=== PATIENT | female | born 1960 | race Caucasian/White ===

== ENCOUNTER 2017-03-23 09:04 | Inpatient (IN) | payer MEDICAID ==
[~2017-03-23] VITALS: Ht 162.6 cm; Wt 87.1 kg
[2017-03-23 10:06] LABS: BASOPHIL % 0.3 % (0-2); PLATELET COUNT 238 x10^3mcL (130-400); RED CELL DISTRIBUTION WIDTH 13.4 % (11.5-14.5)
[2017-03-23 10:17] LABS: CALCIUM 9.7 mg/dL (8.5-10.1); CARBON DIOXIDE 28.8 mmol/L (21-32); CHLORIDE SERUM 105 mmol/L (98-107); CREATININE SERUM 0.7 mg/dL (0.6-1.0); GFR1 > 60 mL/min; GLUCOSE SERUM 103 mg/dL (74-106); POTASSIUM SERUM 3.6 mmol/L (3.5-5.1); SODIUM SERUM 142 mmol/L (136-145)
[2017-03-23 10:21] LABS: ALBUMIN 3.9 g/dL (3.4-5.0); ALKALINE PHOSPHATASE 140 U/L (46-116); ALT/SGPT 42 U/L (14-59); AMYLASE 54 U/L (25-115); AST/SGOT 38 U/L (15-37); BILIRUBIN TOTAL 0.38 mg/dL (0.20-1.00); LIPASE 125 IU/L (73-393)
[2017-03-23 10:30] LABS: TOTAL PROTEIN, SERUM 8.6 g/dL (6.4-8.2)
[2017-03-23 16:11] LABS: CHOLESTEROL/HDL RATIO 3.7; MAGNESIUM 2.6 mg/dL (1.8-2.4); PHOSPHOROUS 2.5 mg/dL (2.5-4.9)
[2017-03-23 16:18] LABS: T3 TOTAL 1.25 ng/mL
[2017-03-23 16:38] LABS: FREE T4 0.95 ng/dL (0.76-1.46); FREE THYROXINE INDEX 2.5 ug/dL (1.4-4.5); T4(THYROXINE) 8.2 ug/dL (4.7-13.3)
[2017-03-23 17:00] VITALS: BP 145/78
[2017-03-23] MEDS ORDERED: GEMFIBROZIL600 MG PO (20:02)
[2017-03-23 21:29] VITALS: BP 130/64
[2017-03-24 04:41] LABS: microscopic required? NO
[2017-03-24 05:02] LABS: UA SPECIFIC GRAVITY 1.015 (1.005-1.035); urine erythrocyte NEGATIVE (NEGATIVE)
[2017-03-24 05:09] LABS: AMPHETAMINE QUAL UR NONE DETECTED (NEG <=1000)
[2017-03-24 05:29] VITALS: BP 97/54
[2017-03-24 06:31] LABS: CALCIUM 8.9 mg/dL (8.5-10.1); CARBON DIOXIDE 28.4 mmol/L (21-32); CHLORIDE SERUM 109 mmol/L (98-107); CREATININE SERUM 0.7 mg/dL (0.6-1.0); GFR1 > 60 mL/min; GLUCOSE SERUM 84 mg/dL (74-106); MAGNESIUM 2.6 mg/dL (1.8-2.4); POTASSIUM SERUM 4.1 mmol/L (3.5-5.1); SODIUM SERUM 142 mmol/L (136-145)
[2017-03-24 06:52] LABS: BASOPHIL % 0.5 % (0-2); PLATELET COUNT 199 x10^3mcL (130-400); RED CELL DISTRIBUTION WIDTH 13.5 % (11.5-14.5)
[2017-03-24 09:37] VITALS: Ht 162.6 cm; Wt 87.1 kg
[2017-03-24 09:39] VITALS: BP 129/79
[2017-03-24 14:35] VITALS: BP 126/41
[2017-03-24 21:33] VITALS: BP 105/50
[2017-03-25 05:55] VITALS: BP 107/60
[2017-03-25 06:14] LABS: CARBON DIOXIDE 28.6 mmol/L (21-32); CHLORIDE SERUM 109 mmol/L (98-107); CREATININE SERUM 0.6 mg/dL (0.6-1.0); GFR1 > 60 mL/min; GLUCOSE SERUM 82 mg/dL (74-106); MAGNESIUM 2.3 mg/dL (1.8-2.4); PHOSPHOROUS 3.2 mg/dL (2.5-4.9); POTASSIUM SERUM 4.2 mmol/L (3.5-5.1); SODIUM SERUM 141 mmol/L (136-145)
[2017-03-25 06:44] LABS: BASOPHIL % 0.3 % (0-2); PLATELET COUNT 180 x10^3mcL (130-400); RED CELL DISTRIBUTION WIDTH 13.6 % (11.5-14.5)
[2017-03-25] MEDS ORDERED: MIRALAX17 GM/Dose PO (10:08)
[2017-03-25 13:54] VITALS: BP 114/69
[2017-03-25] MEDS ORDERED: PREHO PR (15:19)
[2017-03-25] MEDS ORDERED: COL100 PO (15:20)
[2017-03-25] MEDS ORDERED: APAP/HYDROCODON1 T13 PO (15:20)
[2017-03-25 17:07] VITALS: BP 120/73
== END 2017-03-25 18:10 | disposition home or self-care (01) | DRG 254 ==
LOC: ED 09:04 → DU 15:00
PROVIDERS: Emergency Medicine; Family Medicine; ADMIT Family Medicine Sports Medicine
DX: K64.4 Residual hemorrhoidal skin tags (principal); N17.0 Acute kidney failure with tubular necrosis; K59.09 Other constipation; I42.0 Dilated cardiomyopathy; E83.41 Hypermagnesemia; E78.5 Hyperlipidemia, unspecified; F32.9 Major depressive disorder, single episode, unspecified; R74.0 Nonspecific elevation of levels of transaminase and lactic acid dehydrogenase [LDH]; Z66 Do not resuscitate; Z68.33 Body mass index [BMI] 33.0-33.9, adult
CPT/HCPCS: 83880; 84439; 90658; J1885; J2405; J3010; J7030; Q0092; Q9966; Q9967

== ENCOUNTER 2018-12-11 13:32 | Emergency (ER) | payer OTHER ==
[~2018-12-11] VITALS: Ht 157.5 cm; Wt 87.5 kg
[~2018-12-11 13:32] MED LIST: APAP/HYDROCODON1 T13 PO; COL100 PO; GEMFIBROZIL600 MG PO; MIRALAX17 GM/Dose PO; PREHO PR
[2018-12-11 13:37] VITALS: Ht 157.5 cm; Wt 87.5 kg
[2018-12-11 14:47] LABS: BASOPHIL % 0.4 % (0-2); PLATELET COUNT 231 x10^3mcL (130-400); RED CELL DISTRIBUTION WIDTH 12.8 % (11.5-14.5)
[2018-12-11 14:53] LABS: CALCIUM 10.6 mg/dL (8.5-10.1); CHLORIDE SERUM 105 mmol/L (98-107); CREATININE SERUM 0.6 mg/dL (0.6-1.0); GFR1 > 60 mL/min; GLUCOSE SERUM 72 mg/dL (74-106); POTASSIUM SERUM 3.7 mmol/L (3.5-5.1); SODIUM SERUM 143 mmol/L (136-145)
[2018-12-11 16:09] VITALS: BP 125/71
== END 2018-12-11 16:09 | disposition home or self-care (01) ==
LOC: ED 13:32
PROVIDERS: Emergency Medicine
DX: R42 Dizziness and giddiness (principal); I10 Essential (primary) hypertension; E78.00 Pure hypercholesterolemia, unspecified
CPT/HCPCS: 36415; J8597

== ENCOUNTER 2019-09-09 13:26 | Emergency (ER) | payer OTHER ==
[~2019-09-09] VITALS: Ht 157.5 cm; Wt 89.4 kg
[2019-09-09 13:34] VITALS: Ht 157.5 cm; Wt 89.4 kg
[2019-09-09 15:07] LABS: UA SPECIFIC GRAVITY >=1.030 (1.005-1.035); microscopic required? YES; urine erythrocyte 3+ (NEGATIVE)
[2019-09-09 15:21] LABS: CALCIUM 9.7 mg/dL (8.5-10.1); CHLORIDE SERUM 108 mmol/L (98-107); CREATININE SERUM 0.6 mg/dL (0.6-1.0); GFR1 > 60 mL/min; GLUCOSE SERUM 100 mg/dL (74-106); POTASSIUM SERUM 3.6 mmol/L (3.5-5.1); SODIUM SERUM 144 mmol/L (136-145)
[2019-09-09 15:26] LABS: ALBUMIN 3.7 g/dL (3.4-5.0); ALKALINE PHOSPHATASE 131 U/L (46-116); ALT/SGPT 37 U/L (14-59); AST/SGOT 27 U/L (15-37); BILIRUBIN TOTAL 0.3 mg/dL (0.20-1.00); TOTAL PROTEIN, SERUM 7.5 g/dL (6.4-8.2)
[2019-09-09 15:28] LABS: BASOPHIL % 0.3 % (0-2); PLATELET COUNT 223 x10^3mcL (130-400); RED CELL DISTRIBUTION WIDTH 13.4 % (11.5-14.5)
[2019-09-09 15:48] VITALS: BP 135/74
== END 2019-09-09 15:48 | disposition home or self-care (01) ==
LOC: ED 13:26
PROVIDERS: Specialist
DX: N39.0 Urinary tract infection, site not specified (principal); I10 Essential (primary) hypertension; E78.00 Pure hypercholesterolemia, unspecified; Z90.711 Acquired absence of uterus with remaining cervical stump
CPT/HCPCS: 36415; J1885